=== PATIENT | male | born 1955 | race Two or more races ===

== ENCOUNTER 2025-06-24 14:42 | Inpatient (IN) | payer MEDICARE, MEDICAID ==
[~2025-06-24] VITALS: Ht 175.3 cm; Wt 88.2 kg
[2025-06-24 16:44] LABS: PLATELET COUNT (AUTO) 133 K/uL (150-450); RED BLOOD CELL COUNT(AUTO) 2.84 MIL/uL (4.5-6.0); RED CELL DISTRIBUTION WIDTH 14.5 % (11.5-15.0); WHITE BLOOD COUNT (AUTO) 6.1 K/uL (4.3-11.0)
[2025-06-24 16:57] LABS: INR 1.64 (0.91-1.10)
[2025-06-24 16:59] LABS: CALCIUM, SERUM 8.5 mg/dL (8.5-10.1); CREATININE 2.1 mg/dL (0.6-1.3); SODIUM SERUM 130 mmol/L (136-145); UREA NITROGEN, BLOOD 21 mg/dL (7-18)
[2025-06-24 17:04] LABS: ASPARTATE AMINOTRANSFERASE 32 U/L (15-37); TOTAL PROTEIN, SERUM 8.2 g/dL (6.4-8.2)
[2025-06-24] MEDS: LIDOCAINE 1%-EPI 1:100,000 50 ML VIAL IJ ONE (19:30)
[2025-06-24] MEDS ORDERED: LIDOCAINE 1%-EPI 1:100,000 20 ML VIAL ONE (19:45)
[2025-06-24] MEDS ORDERED: Z GUARD REMEDY 4 OZ OINT TP PRN (23:00)
[2025-06-24] MEDS ORDERED: ONDANSETRON HCL/PF 4 MG/2 ML VIAL IVP PRN (23:00)
[2025-06-24] MEDS ORDERED: MAG HYDROX/AL HYDROX/SIMETH 30 ML UDC PO PRN (23:00)
[2025-06-24] MEDS ORDERED: ACETAMINOPHEN 325 MG TABLET PO PRN (23:00)
[2025-06-24] MEDS ORDERED: MAGNESIUM HYDROXIDE 30 ML UDC PO PRN (23:00)
[2025-06-24 23:15] VITALS: BP 118/72; TEMP 98.5; O2SAT 100
[2025-06-24] MEDS ORDERED: TEMAZEPAM 7.5 MG CAPSULE PO PRN (23:30)
[2025-06-25] MEDS ORDERED: POLYETHYLENE GLYCOL 3350 17 GM POWD.PACK PO PRN (03:30)
[2025-06-25] MEDS: FUROSEMIDE 40 MG/4 ML VIAL IV ONE (03:55)
[2025-06-25 07:21] LABS: RED BLOOD CELL COUNT(AUTO) 2.77 MIL/uL (4.5-6.0); WHITE BLOOD COUNT (AUTO) 4.9 K/uL (4.3-11.0)
[2025-06-25 07:22] LABS: PLATELET COUNT (AUTO) 117 K/uL (150-450)
[2025-06-25 08:00] VITALS: BP 117/64; TEMP 98.2; O2SAT 99
[2025-06-25] MEDS: FOLIC ACID 1 MG TABLET PO SCH (08:26)
[2025-06-25] MEDS: FUROSEMIDE 40 MG TABLET PO SCH (08:26)
[2025-06-25] MEDS: PANTOPRAZOLE 40 MG TABLET.DR PO SCH (08:27)
[2025-06-25] MEDS: NIFEdipine XL (30MG) 30 MG TAB PO SCH (08:27)
[2025-06-25 09:49] LABS: CALCIUM, SERUM 8.5 mg/dL (8.5-10.1); CREATININE 2.1 mg/dL (0.6-1.3); PHOSPHORUS 4.1 mg/dL (2.5-4.9); SODIUM SERUM 133.0 mmol/L (136-145); UREA NITROGEN, BLOOD 22.0 mg/dL (7-18)
[2025-06-25] MEDS: ALBUMIN 25% 25 GM in PREMIX 1 EA IV SCH (11:48)
[2025-06-25 16:00] VITALS: BP 134/65; TEMP 98.2; O2SAT 99
[2025-06-25] MEDS ORDERED: HYDR2TAB4 PO (17:22)
[2025-06-25] MEDS ORDERED: LACT10SO29 PO (17:22)
[2025-06-25] MEDS ORDERED: POTA-10 PO (17:22)
[2025-06-25] MEDS ORDERED: ATOR40TA PO (17:22)
[2025-06-25] MEDS ORDERED: ONDA4TAB5 PO (17:22)
[2025-06-25] MEDS ORDERED: MAGN400T52 PO (17:22)
[2025-06-25] MEDS ORDERED: OMEP20CA15 PO (17:22)
[2025-06-25] MEDS ORDERED: NIFE-35 PO (17:22)
[2025-06-25] MEDS ORDERED: VITS42.53 TP (17:22)
[2025-06-25] MEDS ORDERED: MELA10TA7 SL (17:22)
[2025-06-25] MEDS ORDERED: FOLI0.8T3 PO (17:22)
[2025-06-25] MEDS ORDERED: LACT-239 PO (17:22)
[2025-06-25] MEDS ORDERED: SIME80TA15 PO (17:22)
[2025-06-25] MEDS ORDERED: FURO40TA5 PO (17:22)
[2025-06-25] MEDS ORDERED: TRAZ-182 PO (17:22)
[2025-06-25 19:08] LABS: CREATININE, URINE 62.7 MG/DL (30.0-125.0); URINE SODIUM, RANDOM 18.0 mmol/l (40-220); URINE TOTAL PROTEIN 7.6 mg/dL (0-11.9)
[2025-06-25 19:29] LABS: APPEARANCE,URINE CLEAR (CLEAR); BLOOD, URINE NEGATIVE Ery/uL (NEGATIVE); LEUKOCYTE ESTERASE ,URINE NEGATIVE (NEGATIVE); NITRITE, URINE NEGATIVE (NEGATIVE); UGLUCOSE NEGATIVE (NEGATIVE)
[2025-06-25 20:00] VITALS: BP 101/54; TEMP 97.5; O2SAT 100
[2025-06-25 20:36] LABS: PROTEIN, BODY FLUID 1.4 G/DL
[2025-06-25] MEDS: ATORVASTATIN 40 MG TABLET PO SCH (21:37)
[2025-06-25 22:20] LABS: EOSINOPHIL,URINE None Seen
[2025-06-25 22:59] LABS: APPEARANCE,SPUN,BODY FLUID CLEAR (CLEAR)
[2025-06-25 23:00] LABS: TOTAL VOLUME,BODY FLUID 6150 mL; WBC, BODY FLUID 88 /cu. mm. (0-200)
[2025-06-25 23:01] LABS: MACROPHAGES, BODY FLUID 15; MONOCYTES,BODY FLUID 8 %
[2025-06-26 07:30] VITALS: BP 115/68; TEMP 97.9; O2SAT 100
[2025-06-26 07:49] LABS: PLATELET COUNT (AUTO) 82 K/uL (150-450); RED BLOOD CELL COUNT(AUTO) 2.30 MIL/uL (4.5-6.0); RED CELL DISTRIBUTION WIDTH 14.4 % (11.5-15.0); WHITE BLOOD COUNT (AUTO) 3.3 K/uL (4.3-11.0)
[2025-06-26 08:42] VITALS: BP 115/68
[2025-06-26 08:49] LABS: ASPARTATE AMINOTRANSFERASE 24.0 U/L (15-37); CALCIUM, SERUM 8.3 mg/dL (8.5-10.1); CREATININE 2.0 mg/dL (0.6-1.3); PHOSPHORUS 3.8 mg/dL (2.5-4.9); SODIUM SERUM 135.0 mmol/L (136-145); TOTAL PROTEIN, SERUM 6.9 g/dL (6.4-8.2); UREA NITROGEN, BLOOD 22.0 mg/dL (7-18)
[2025-06-26 08:55] LABS: CREATINE KINASE, TOTAL 87.0 U/L (39-308); EOSINOPHILS % (MANUAL) 3 % (0-4); LYMPHOCYTES % (MANUAL) 23 % (16-48); MONOCYTES % (MANUAL) 3 % (0-11.0); NEUTROPHILS % (MANUAL) 71 (42-76); PLATELET ESTIMATE DECREASED
[2025-06-26] MEDS: POTASSIUM CHLORIDE 20 MEQ TAB.PRT.SR PO SCH (10:08)
[2025-06-26] MEDS: ALBUMIN 25% 25 GM in PREMIX 1 EA IV SCH (10:54)
[2025-06-26] MEDS ORDERED: SPIR25TA PO (13:54)
[2025-06-27 08:07] LABS: PTH, INTACT 43 pg/mL (15-65)
== END 2025-06-26 15:15 | disposition hospice, home (50) | DRG 432 ==
LOC: ER 14:59 → MED 22:39
PROVIDERS: ADMIT Registered Nurse Psychiatric/Mental Health; ATTEND Nurse Practitioner Family
PROC: 0W9G3ZZ Drainage of Peritoneal Cavity, Percutaneous Approach (ICD-10-PCS; 2025-06-24)
PROC: 0W9G3ZZ Drainage of Peritoneal Cavity, Percutaneous Approach (ICD-10-PCS; principal; 2025-06-25)
DX: K70.31 Alcoholic cirrhosis of liver with ascites (principal); N17.0 Acute kidney failure with tubular necrosis; E87.1 Hypo-osmolality and hyponatremia; E44.0 Moderate protein-calorie malnutrition; K76.6 Portal hypertension; E88.09 Other disorders of plasma-protein metabolism, not elsewhere classified; D64.9 Anemia, unspecified; E78.5 Hyperlipidemia, unspecified; E80.6 Other disorders of bilirubin metabolism; E83.9 Disorder of mineral metabolism, unspecified; M89.9 Disorder of bone, unspecified; N18.9 Chronic kidney disease, unspecified; I12.9 Hypertensive chronic kidney disease with stage 1 through stage 4 chronic kidney disease, or unspecified chronic kidney disease; E87.6 Hypokalemia; F10.21 Alcohol dependence, in remission; Z68.28 Body mass index [BMI] 28.0-28.9, adult; Z66 Do not resuscitate; Z87.891 Personal history of nicotine dependence
CPT/HCPCS: 36415; 49083; 71045-TC; 76700-TC; 80048-TC; 80053-TC; 80076-TC; 82105; 82550-TC; 82570-TC; 83690-TC; 83735-TC; 83880; 83970; 84100-TC; 84155; 84165; 84300-TC; 84484-TC; 85025-TC; 85027-TC; 85730-TC; 87070-TC; 87081-TC; 89051-TC; 93970-TC; 97110-TC; 97116-TC; 97530-TC; A4216; A4223; A6253; A6403; G0378; J1938; J3490; J7030; J7050; P9047